=== PATIENT | male | born 1980 | race African-American/Black ===

== ENCOUNTER 2017-12-26 17:04 | Inpatient (IN) | payer SELFPAY ==
[2017-12-26] MEDS ORDERED: Acetaminophen TAB* 325 MG PO PRN (17:52)
[2017-12-26] MEDS ORDERED: Al Hydrox/Mg Hydrox/Simet LIQ* 30 ML UDC PO PRN (17:52)
[2017-12-26] MEDS ORDERED: OLANzapine TAB* 10 MG PO SCH (21:00)
[2017-12-27] MEDS: Vitamin THERAPEUTIC TAB PO SCH (09:40)
[2017-12-27] MEDS ORDERED: clonazePAM TAB(*) 1 MG PO PRN (12:08)
[2017-12-27] MEDS ORDERED: OLANzapine TAB*ODT* 5 MG ONE (12:12)
[2017-12-27] MEDS ORDERED: clonazePAM TAB(*) 1 MG ONE (12:12)
[2017-12-27] MEDS: OLANzapine TAB*ODT* 5 MG PO SCH ×2 (12:20→22:00)
--- NOTE | 2017-12-27 15:15 | HP ---
DATE OF ADMISSION: 12/26/2017. SUPERVISING PSYCHIATRIST: Dr. Camron Newsome* (dictated by ANN Kulkarni) . JUSTIFICATION FOR ADMISSION: The patient phoned police with reports of urges to harm himself and others and was brought to the emergency department for evaluation. The patient merits hospitalization for immediate safety and stabilization. CHIEF COMPLAINT: "My brain is doing bag things to me." HISTORY OF PRESENT ILLNESS: Arsen is a 37-year-old, black male, originally from [facility]. He is known to us from a previous admission in November of 2015. He has a diagnoses of schizophrenia and PTSD per history. The patient presented to the emergency department on either December 23 or December 24. While in the emergency department, there was concern about cardiac debility and he was admitted to the telemetry floor. While on the telemetry floor, he refused a cardiac stress test and was mostly catatonic while there. Psychiatry was consulted and seen by this scientific writer yesterday. He was sitting up in bed with his eyes closed. He was guarded and politely refused to answer questions. He was deemed appropriate for involuntary admission to the [facility] and tolerated the transfer well. He declined ordered dose of Zyprexa last evening. Today, I find the patient sitting on the edge of his bed speaking with a nurse. The patient is tearful and malodorous. He has a rigid presentation and with his eyes closed. With some therapeutic presence and psychoeducation, the patient is able to identify internal stimuli. He is vague and states that his brain is "doing bad things to him." He winces as if in pain when trying to move his arms. He denies physical pain. He was agreeable to onset of psychiatric medications to treat schizophrenia. During conversation with scientific writer , the patient accepts Zyprexa 5 mg ODT and Clonazepam 1 mg. We will continue these medications twice daily and titrate as necessary. The patient reports he has been living on his own and wants to return to "being functional." The patient appears to be unable to care for himself as evidenced by poor ADL's. He has politely refused vital signs, food, and assistance with ADL's. He declined offer to join milieu and prefers to lie in bed. PSYCHIATRIC REVIEW OF SYMPTOMS: The patient presents as dysphoric and tearful. He is clearly bothered by internal stimuli. The patient declines to give specific symptomology. He denies violent ideation, denies suicidal ideation. He does have a known history of schizophrenia and was referred to the ACT team after his admission in 2015. PAST PSYCHIATRIC HISTORY: The patient was admitted to [facility] in June of 2016 during a catatonic state. At that time, he had come to visit his brother in [place] and was living in [facility]. He was on this unit for over a month and improved with intensive psychiatric services, including treatment over objection. According to prior records, the patient had been treated at [facility] and [facility]. This scientific writer spoke with local ACT team and he has not been a client of theirs. PAST MEDICAL HISTORY: As stated above, he was observed on the telemetry floor due to an abnormal EKG. He received a transthoracic echocardiogram, but refused to participate in a stress test. He also had a chest x-ray that noted small right basilar infiltrate, no other abnormal findings. Due to selective mutism, his medical history is unclear. We will continue to assess as the patient is more psychiatrically stable. ALLERGIES: PROLIXIN AND HAS HAD A DYSTONIC REACTION TO INVEGA SUSTENNA. FAMILY PSYCHIATRIC HISTORY: According to previous records, his mother and sister have unspecified mental illness. SUBSTANCE USE HISTORY: The patient denies current substance use. His urine drug screen was negative, as was his toxicology for salicylates, acetaminophen, and alcohol. SOCIAL HISTORY: The patient lives alone in the [facility]. He previously lived in [facility] and was unemployed. He receives Social Security Disability. The patient is an immigrant from [place] and was adopted as a teen. It is unknown how long he has been living in the [place]. MENTAL STATUS EXAM: The patient is sitting on the edge of the bed with tense posture, forearms and hands clenched. He is cooperative with interview and answers questions to the best of his ability. Arsen is a 37-year-old, black male who appears stated age. He has a muscular build, is wearing blue scrubs. He is poorly groomed with poor ADL's and severe halitosis. He is alert and oriented with poor eye contact. He tries to make eye contact multiple times throughout the interview. His mood is dysphoric. His affect is tearful. Thought content was likely significant for delusions and hallucinations as the patient alludes to these. Thought process is impoverished and noted to have thought blocking. His insight is fair. Judgment is poor, but improved since yesterday. REVIEW OF SYSTEMS: The patient denies headache or double vision. He denies sore throat, cough, chest pain, difficulty breathing, abdominal pain, nausea, vomiting, diarrhea, or constipation. He denies enlarged lymph nodes, rashes, fever, or mentation. PHYSICAL EXAMINATION The patient was recently transferred from the Medical floor and received physical from the Hospitalists service. The patient declines offer of physical exam by this scientific writer. LABORATORY DATA: His CBC was grossly unremarkable. His most recent CMP on December 25 was within normal limits. His TSH is normal at 1.6. Urinalysis noted to have 1+ ketones and blood. He received IV fluids over the course of his medical admission. His urine drug screen was negative. DIAGNOSES: Schizophrenia, PTSD. ASSESSMENT: Arsen is a 37-year-old, [place] born, black male with a history of schizophrenia. He was treated on our unit for a over month in 2015 after presenting in a catatonic state. From here, he was discharged to follow-up with ACT team. There have not been any other hospital visits between then and most recent presentation. Arsen is slowly gaining insight into his illness and accepts the offer of medications today. PLAN: Admit to the Adult Behavioral Services Unit on 9.39 status. Code status is full. He continues on 15 minute checks for safety. We will initiate antipsychotic and Benztropine treatment for schizophrenia and history of catatonia. We will encourage ADL's and interaction in therapeutic milieu and the patient is willing to do so. Estimated length of stay is one to two weeks. Discharge planning will include family involvement and outpatient referrals. ANN KULKARNI [id number]/[facility] #: [id number] [place]
[2017-12-27] MEDS: clonazePAM TAB(*) 1 MG PO SCH (22:00)
[2017-12-28] MEDS: clonazePAM TAB(*) 1 MG PO SCH ×2 (09:18→22:31)
[2017-12-28] MEDS: OLANzapine TAB*ODT* 5 MG PO SCH ×2 (09:18→22:31)
[2017-12-28] MEDS: Vitamin THERAPEUTIC TAB PO SCH (09:25)
--- NOTE | 2017-12-28 16:00 | PN ---
Subjective - Subjective Date of Service: 12/28/17 Service Type: 58274 Hosp care 25 min moderate complexity Subjective: Patient is seclusive to his room but verbal upon approach. He states his " brain is still doing bad things" and also reports mild improvement in AH/ delusions. He states "it is unfortunate that I cannot function [without medications]." He asks what is expected of him and copywriter encourages continued medication adherence and rest, along with increased fluid and food intake. Objective - Appearance Appearance: Healthy Appearing Dysmorphic Features: Yes Hygiene: Mal-odorous Grooming: Disheveled - Behavior Psychomotor Activities: Abnormal-Decreased - psychomotor retardation Exhibits Abnormal Movement: Yes - Attitude and Relatedness Attitude and Relatedness: Psychotically Related Eye Contact: Poor - Speech Quality: Unpressured Latencies: Long Quantity: Terse - Mood Patient's Decription of Mood: does not answer - Affect Observed Affect: Depressed Affect Consistent with: Dysphoria - Thought Process Patient's Thought Process: Impoverished Thought Content: No Passive Wish, No Suicidal Planning, No Homicidal Ideation, No Paranoid Ideation - Sensorium Experiencing Hallucinations: Yes Type of Hallucinations: Visual: Yes, Auditory: Yes, Command: Yes - Level of Consciousness Level of Consciousness: Alert Orientation: Yes Intact, Yes Orientated to Time, Yes Orientated to Place, Yes Orientated to Person - Impulse Control Impulse Control: Intact - in structured setting - Insight and Judgement Insight and Judgement: Fair - Group Participation Particating in Group Activities: No - Medication Management Medication Management Adherence: Partial Assessment - Assessment Merits Inpatient Hospitalization: For Immediate Safety, For Stabilization, To Initiate Treatment, For Ongoing Evaluation, For Discharge Planning, Pending Safe DC Plan Inpatient DSM-V Dx: F20.2 Clinical Impression: 37yo [place]-born black male with history of schizophrenia and poor adherence to outpatient mental health treatment. He presented to ED after phoning police with reports of concern he will harm someone. While in ED, patient was noted to have abnormal ECG and was monitored on telemetry. Once medically clear, patient was admitted to B[facility] on involuntary status due to significant positive and negative symptoms of schizophrenia. He merits hospitalization for immediate safety and stabilization. Plan - Plan Treatment Plan: Name: EDIN TRAN Birthdate: 1980 [id number] continued acute intensive psychiatric treatment. Titrate olanzapine then cross titrate to medication with available BEARD. continue clonazepam for catatonic symptoms. Encourage fluid and nutrition intake and ADLs. Discharge planning to include family members and outpatient referrals. Will consider referral to [facility] if no improvement. Continued Medication Management: Start Medication Medications: Current Medications Acetaminophen (Tylenol Tab*) 650 mg PO Q4H PRN PRN Reason: PAIN or TEMP > 101 F Al Hydrox/Mg Hydrox/Simethicone (Maalox Plus*) 30 ml PO Q4H PRN PRN Reason: INDIGESTION Clonazepam (Klonopin Tab(*)) 1 mg PO BID [facility] Last Admin: 12/28/17 09:18 Dose: 1 mg Multivitamins (Theragran Tab*) 1 tab PO DAILY [facility] Last Admin: 12/28/17 09:25 Dose: Not Given Olanzapine (Zyprexa * Tab Odt) 5 mg PO TID [facility] - Discharge Plan Discharge Plan: Outpatient Follow Up Outpatient Program: [facility]
[2017-12-29] MEDS: Vitamin THERAPEUTIC TAB PO SCH (08:07)
[2017-12-29] MEDS: OLANzapine TAB*ODT* 5 MG PO SCH ×3 (08:08→14:51)
[2017-12-29] MEDS: clonazePAM TAB(*) 1 MG PO SCH ×2 (08:08→21:13)
--- NOTE | 2017-12-29 14:44 | PN ---
Subjective - Subjective Date of Service: 12/29/17 Service Type: 05617 Hosp care 15 min low complexity Subjective: Patient has been attending meals, otherwise seclusive to room. He is lying on bed with blanket covering him entirely. He is verbal upon approach and recognizes screenplay writer by name. Patient reports "I took a shower" and endorses mild improvement in AH. He denies concerns or complaints. Objective - Appearance Appearance: Healthy Appearing Dysmorphic Features: Yes Hygiene: Normal Grooming: Fairly Well Kept - Behavior Psychomotor Activities: Abnormal-Decreased - psychomotor retardation Exhibits Abnormal Movement: Yes - Attitude and Relatedness Attitude and Relatedness: Psychotically Related Eye Contact: Poor - Speech Quality: Unpressured Latencies: Long Quantity: Terse - Mood Patient's Decription of Mood: "Okay" - Affect Observed Affect: Depressed Affect Consistent with: Dysphoria - Thought Process Patient's Thought Process: Impoverished Thought Content: Yes Paranoid Ideation, No Passive Wish, No Suicidal Planning, No Homicidal Ideation - Sensorium Experiencing Hallucinations: Yes Type of Hallucinations: Visual: Yes, Auditory: Yes, Command: Yes - Level of Consciousness Level of Consciousness: Alert Orientation: Yes Intact, Yes Orientated to Time, Yes Orientated to Place, Yes Orientated to Person - Impulse Control Impulse Control: Tenuous - Insight and Judgement Insight and Judgement: Fair - Group Participation Particating in Group Activities: No - Medication Management Medication Management Adherence: Yes Assessment - Assessment Merits Inpatient Hospitalization: For Immediate Safety, For Stabilization, To Initiate Treatment, Consolidate Improvements Inpatient DSM-V Dx: F20.2 Clinical Impression: 37yo [place]-born black male with history of schizophrenia and poor adherence to outpatient mental health treatment. He presented to ED after phoning police with reports of concern he will harm someone. While in ED, patient was noted to have abnormal ECG and was monitored on telemetry. Once medically clear, patient was admitted to [facility] on involuntary status due to significant positive and negative symptoms of schizophrenia. He merits hospitalization for immediate safety and stabilization. Plan - Plan Treatment Plan: Name: EDIN TRAN Birthdate: 1980 [id number] continued acute intensive psychiatric treatment. cross titrate olanzapine to aripiprazole, then consider BEARD. continue clonazepam for catatonic symptoms. Encourage fluid and nutrition intake and ADLs. Discharge planning to include family members and outpatient referrals. Will consider referral to [facility] if no improvement. Continued Medication Management: Different Medication Medications: Current Medications Acetaminophen (Tylenol Tab*) 650 mg PO Q4H PRN PRN Reason: PAIN or TEMP > 101 F Al Hydrox/Mg Hydrox/Simethicone (Maalox Plus*) 30 ml PO Q4H PRN PRN Reason: INDIGESTION Clonazepam (Klonopin Tab(*)) 1 mg PO BID [facility] Last Admin: 12/29/17 08:08 Dose: 1 mg Multivitamins (Theragran Tab*) 1 tab PO DAILY [facility] Last Admin: 12/29/17 08:07 Dose: 1 tab Olanzapine (Zyprexa * Tab Odt) 5 mg PO TID [facility] Last Admin: 12/29/17 13:40 Dose: 5 mg - Discharge Plan Discharge Plan: Outpatient Follow [facility]patient [facility]
[2017-12-29] MEDS ORDERED: ARIPiprazole TAB* 5 MG PO SCH (21:00)
[2017-12-30] MEDS: clonazePAM TAB(*) 1 MG PO SCH ×2 (09:44→20:37)
[2017-12-30] MEDS: Vitamin THERAPEUTIC TAB PO SCH (09:44)
[2017-12-30] MEDS: OLANzapine TAB*ODT* 5 MG PO SCH ×2 (09:44→13:50)
--- NOTE | 2017-12-30 15:33 | PN ---
Subjective - Subjective Service Type: 43178 Hosp care 15 min low complexity Subjective: Patient found sitting at a table in corner of milieu, looking out the window. He states "i am taking the medicine" and endorses improved symptoms. He reports his mood is "A lot of things" and becomes tearful. When i ask specifics about AH or delusional thoughts, he states "I wish not to answer that. " Patient informed of positive sickle screen and states previous knowledge but was told he is negative for sickle cell anemia. Psychomotor activity is improved as evidenced by ambulation and ROM of upper extremities. Patient declines offer of staff pass at this time. Objective - Appearance Appearance: Healthy Appearing Dysmorphic Features: Yes Hygiene: Normal Grooming: Fairly Well Kept - Behavior Psychomotor Activities: Normal Exhibits Abnormal Movement: No - Attitude and Relatedness Attitude and Relatedness: Withdrawn Eye Contact: Good - Speech Quality: Unpressured Latencies: Long Quantity: Appropriate - Mood Patient's Decription of Mood: "a lot of things" - Affect Observed Affect: Depressed Affect Consistent with: Dysphoria - Thought Process Patient's Thought Process: Goal Directed, Impoverished Thought Content: Yes Paranoid Ideation, No Passive Wish, No Suicidal Planning, No Homicidal Ideation - Sensorium Experiencing Hallucinations: Yes Type of Hallucinations: Visual: No, Auditory: Yes, Command: No - Level of Consciousness Level of Consciousness: Alert Orientation: Yes Intact, Yes Orientated to Time, Yes Orientated to Place, Yes Orientated to Person - Impulse Control Impulse Control: Intact - Insight and Judgement Insight and Judgement: Fair - Group Participation Particating in Group Activities: No - Medication Management Medication Management Adherence: Yes Assessment - Assessment Merits Inpatient Hospitalization: For Immediate Safety, For Stabilization, Consolidate Improvements, Pending Safe DC Plan Inpatient DSM-V Dx: F20.2 Clinical Impression: 37yo Citizen [place]-born black male with history of schizophrenia and poor adherence to outpatient mental health treatment. He presented to ED after phoning police with reports of concern he will harm someone. While in ED, patient was noted to have abnormal ECG and was monitored on telemetry. Once medically clear, patient was admitted to [facility] on involuntary status due to significant positive and negative symptoms of schizophrenia. He merits hospitalization for immediate safety and stabilization. Plan - Plan Treatment Plan: Name: EDIN TRAN Birthdate: 1980 [id number] continued acute intensive psychiatric treatment. cross titrate olanzapine to aripiprazole, then consider BEARD. continue clonazepam for catatonic symptoms. Encourage fluid and nutrition intake and ADLs. Discharge planning to include family members and outpatient referrals. Will consider referral to [facility] if no improvement. Continued Medication Management: Start Medication Medications: Current Medications Acetaminophen (Tylenol Tab*) 650 mg PO Q4H PRN PRN Reason: PAIN or TEMP > 101 F Al Hydrox/Mg Hydrox/Simethicone (Maalox Plus*) 30 ml PO Q4H PRN PRN Reason: INDIGESTION Aripiprazole (Abilify Tab*) 10 mg PO BEDTIME [facility] Clonazepam (Klonopin Tab(*)) 1 mg PO BID [facility] Last Admin: 12/30/17 09:44 Dose: 1 mg Multivitamins (Theragran Tab*) 1 tab PO DAILY [facility] Last Admin: 12/30/17 09:44 Dose: 1 tab Olanzapine (Zyprexa * Tab Odt) 5 mg PO DAILY [facility] - Discharge Plan Discharge Plan: Outpatient Follow Up Outpatient Program: [facility]
[2017-12-30] MEDS: ARIPiprazole TAB* 5 MG PO SCH (20:37)
[2017-12-31] MEDS: clonazePAM TAB(*) 1 MG PO SCH ×2 (08:27→20:23)
[2017-12-31] MEDS: Vitamin THERAPEUTIC TAB PO SCH (08:28)
[2017-12-31] MEDS: OLANzapine TAB*ODT* 5 MG PO SCH (08:28)
[2017-12-31] MEDS: ARIPiprazole TAB* 5 MG PO SCH (20:23)
[2018-01-01] MEDS: clonazePAM TAB(*) 1 MG PO SCH ×2 (07:55→20:16)
[2018-01-01] MEDS: OLANzapine TAB*ODT* 5 MG PO SCH (07:56)
[2018-01-01] MEDS: Vitamin THERAPEUTIC TAB PO SCH (07:56)
--- NOTE | 2018-01-01 19:57 | PN ---
Subjective - Subjective Date of Service: 01/01/18 Service Type: 03117 Hosp care 15 min low complexity Subjective: Patient was found sitting or standing on the same spot but when approached answered questions appropriately. Reports that his meds are helping and voices are calmer. Voices just tell him how he was doing. Wanted to call his mother to let her know that he was here. Denies SI or HI. Ate fine and sleeping well he says. Objective - Appearance Appearance: Healthy Appearing Dysmorphic Features: No Hygiene: Mal-odorous Grooming: Disheveled - Behavior Psychomotor Activities: Abnormal-Decreased Exhibits Abnormal Movement: No - Attitude and Relatedness Attitude and Relatedness: Appropriate Eye Contact: Fair - Speech Quality: Unpressured Latencies: Long Quantity: Terse - Mood Patient's Decription of Mood: "Fine" - Affect Observed Affect: Constricted - Thought Process Patient's Thought Process: Coherent, Goal Directed Thought Content: No Passive Wish, No Suicidal Planning, No Homicidal Ideation, No Paranoid Ideation - Sensorium Experiencing Hallucinations: Yes Type of Hallucinations: Visual: No, Auditory: Yes, Command: No - Level of Consciousness Level of Consciousness: Alert Orientation: Yes Intact, Yes Orientated to Time, Yes Orientated to Place, Yes Orientated to Person - Impulse Control Impulse Control: Intact - Insight and Judgement Insight and Judgement: Fair - Group Participation Particating in Group Activities: No - Medication Management Medication Management Adherence: Yes Assessment - Assessment Merits Inpatient Hospitalization: For Immediate Safety, For Stabilization, Pending Safe DC Plan Inpatient DSM-V Dx: F20.2 Plan - Plan Treatment Plan: Name: EDIN TRAN Birthdate: 1980 [id number] Continued Medication Management: Continue Outpt Medication Medications: Current Medications Acetaminophen (Tylenol Tab*) 650 mg PO Q4H PRN PRN Reason: PAIN or TEMP > 101 F Al Hydrox/Mg Hydrox/Simethicone (Maalox Plus*) 30 ml PO Q4H PRN PRN Reason: INDIGESTION Aripiprazole (Abilify Tab*) 10 mg PO BEDTIME [facility] Last Admin: 12/31/17 20:23 Dose: 10 mg Clonazepam (Klonopin Tab(*)) 1 mg PO BID [facility] Last Admin: 01/01/18 07:55 Dose: 1 mg Multivitamins (Theragran Tab*) 1 tab PO DAILY [facility] Last Admin: 01/01/18 07:56 Dose: 1 tab Olanzapine (Zyprexa * Tab Odt) 5 mg PO DAILY [facility] Last Admin: 01/01/18 07:56 Dose: 5 mg - Discharge Plan Discharge Plan: Outpatient Follow Up Outpatient Program: [facility]
[2018-01-01] MEDS: ARIPiprazole TAB* 5 MG PO SCH (20:16)
[2018-01-02] MEDS: Vitamin THERAPEUTIC TAB PO SCH (07:36)
[2018-01-02] MEDS: OLANzapine TAB*ODT* 5 MG PO SCH (07:36)
[2018-01-02] MEDS: clonazePAM TAB(*) 1 MG PO SCH ×2 (07:36→19:58)
--- NOTE | 2018-01-02 15:47 | PN ---
Subjective - Subjective Service Type: 55410 Hosp care 15 min low complexity Subjective: Patient is present in milieu. He recognizes investigative writer and endorses improvement in thinking. He states "the meds are working." He continues to exhibit paranoid ideation. For example, he is hesitant to engage in medicaid application with staff. He declines offer of BEARD and states that he will remember to take oral medication. Objective - Appearance Appearance: Well Developed/Nourished Dysmorphic Features: Yes Hygiene: Normal Grooming: Fairly Well Kept - Behavior Psychomotor Activities: Normal Exhibits Abnormal Movement: No - Attitude and Relatedness Attitude and Relatedness: Psychotically Related Eye Contact: Good - Speech Quality: Unpressured Latencies: Long Quantity: Terse - Mood Patient's Decription of Mood: "Good" - Affect Observed Affect: Depressed Affect Consistent with: Dysphoria - Thought Process Patient's Thought Process: Impoverished Thought Content: Yes Paranoid Ideation, No Passive Wish, No Suicidal Planning, No Homicidal Ideation - Sensorium Experiencing Hallucinations: Yes Type of Hallucinations: Visual: No, Auditory: Yes, Command: No - Level of Consciousness Level of Consciousness: Alert Orientation: Yes Intact, Yes Orientated to Time, Yes Orientated to Place, Yes Orientated to Person - Impulse Control Impulse Control: Tenuous - Insight and Judgement Insight and Judgement: Poor - Group Participation Particating in Group Activities: Yes - Medication Management Medication Management Adherence: Yes Assessment - Assessment Merits Inpatient Hospitalization: For Immediate Safety, For Stabilization, Consolidate Improvements Inpatient DSM-V Dx: F20.2 Clinical Impression: 37yo [place]-born black male with history of schizophrenia and poor adherence to outpatient mental health treatment. He presented to ED after phoning police with reports of concern he will harm someone. While in ED, patient was noted to have abnormal ECG and was monitored on telemetry. Once medically clear, patient was admitted to [facility] on involuntary status due to significant positive and negative symptoms of schizophrenia. He merits hospitalization for immediate safety and stabilization. Plan - Plan Treatment Plan: Name: EDIN TRAN Birthdate: 1980 [id number] continued acute intensive psychiatric treatment. cross titrate olanzapine to aripiprazole, then consider BEARD. continue clonazepam for catatonic symptoms. Encourage group attendance. Discharge planning to include family members and outpatient referrals. Will consider [facility] to [facility] if no improvement. Continued Medication Management: Start Medication Medications: Current Medications Acetaminophen (Tylenol Tab*) 650 mg PO Q4H PRN PRN Reason: PAIN or TEMP > 101 F Al Hydrox/Mg Hydrox/Simethicone (Maalox Plus*) 30 ml PO Q4H PRN PRN Reason: INDIGESTION Aripiprazole (Abilify Tab*) 15 mg PO BEDTIME [facility] Clonazepam (Klonopin Tab(*)) 1 mg PO BID [facility] Last Admin: 01/02/18 07:36 Dose: 1 mg Multivitamins (Theragran Tab*) 1 tab PO DAILY [facility] Last Admin: 01/02/18 07:36 Dose: 1 tab Olanzapine (Zyprexa * Tab Odt) 5 mg PO DAILY [facility] Last Admin: 01/02/18 07:36 Dose: 5 mg - Discharge Plan Discharge Plan: [facility]
[2018-01-02] MEDS: ARIPiprazole TAB* 15 MG PO SCH (19:58)
[2018-01-03] MEDS: Vitamin THERAPEUTIC TAB PO SCH (07:31)
[2018-01-03] MEDS: clonazePAM TAB(*) 1 MG PO SCH ×2 (07:31→20:02)
[2018-01-03] MEDS: OLANzapine TAB*ODT* 5 MG PO SCH (07:31)
[2018-01-03] MEDS: ARIPiprazole TAB* 15 MG PO SCH (20:02)
[2018-01-04] MEDS: OLANzapine TAB*ODT* 5 MG PO SCH (08:42)
[2018-01-04] MEDS: clonazePAM TAB(*) 1 MG PO SCH ×2 (08:42→20:22)
[2018-01-04] MEDS: Vitamin THERAPEUTIC TAB PO SCH (08:42)
--- NOTE | 2018-01-04 11:15 | PN ---
[facility]: Group Therapy Note - Service Type Service Type: 40233 Group Psychotherapy - Cognitive Behavioral Group Therapy ( CBT):Patient attended CBT programming this morning and presented with flat affect that did not vary with discussion. Although responsive to direct prompts to respond to questions, patient did not engage in spontaneous conversation.
--- NOTE | 2018-01-04 16:11 | PN ---
Subjective - Subjective Date of Service: 01/04/18 Service Type: 56181 Hosp care 15 min low complexity Subjective: Edin is not talkative and has some slight latencies in his speech. He perceives that he has gotten better and is now able to talk and get out of his room. he feels like medications are working well. There was a moment of slight echolalia that he employed to ask a question. Objective - Appearance Appearance: Well Developed/Nourished Dysmorphic Features: No Hygiene: Normal Grooming: Disheveled - Behavior Psychomotor Activities: Abnormal-Decreased Exhibits Abnormal Movement: No - Attitude and Relatedness Attitude and Relatedness: Cooperative Eye Contact: Good - Speech Quality: Unpressured Latencies: Short Quantity: Terse - Mood Patient's Decription of Mood: "Fine" - Affect Observed Affect: Unvariable Affect Consistent with: Dysphoria - Thought Process Patient's Thought Process: Coherent, Impoverished Thought Content: No Passive Wish, No Suicidal Planning, No Homicidal Ideation - Sensorium Experiencing Hallucinations: No, Sensorium is Clear - Level of Consciousness Level of Consciousness: Lethargic Orientation: Yes Intact, Yes Orientated to Time, Yes Orientated to Place, Yes Orientated to Person - Impulse Control Impulse Control: Impaired - Insight and Judgement Insight and Judgement: Impaired - Group Participation Particating in Group Activities: Yes - Medication Management Medication Management Adherence: Yes - Additional Observations Comments: Speech is slow. Eye contact is intense. His thoughts appear to be difficult to process, but he is pleasant and on topic. Assessment - Assessment Inpatient DSM-V Dx: F20.2 Clinical Impression: Edin is a 37-y.o. black man with a history of schizophrenia who is currently experiencing an exacerbation of this disorder. He is currently displaying traits of impoverished thoughts but he feels like he is improving. he feels more talkative although he acknowledges that he is not "chatty." He is proud of his advances toward getting well. he continues to keep to himself, but he is seen in the milieu and going to groups. Plan - Plan Treatment Plan: Name: EDIN TRAN Birthdate: 1980 [id number] Medications: Current Medications Acetaminophen (Tylenol Tab*) 650 mg PO Q4H PRN PRN Reason: PAIN or TEMP > 101 F Al Hydrox/Mg Hydrox/Simethicone (Maalox Plus*) 30 ml PO Q4H PRN PRN Reason: INDIGESTION Aripiprazole (Abilify Tab*) 15 mg PO BEDTIME [facility] Last Admin: 01/03/18 20:02 Dose: 15 mg Clonazepam (Klonopin Tab(*)) 1 mg PO BID [facility] Last Admin: 01/04/18 08:42 Dose: 1 mg Multivitamins (Theragran Tab*) 1 tab PO DAILY [facility] Last Admin: 01/04/18 08:42 Dose: 1 tab Olanzapine (Zyprexa * Tab Odt) 5 mg PO DAILY [facility] Last Admin: 01/04/18 08:42 Dose: 5 mg - Discharge Plan Discharge Plan: Outpatient Follow Up Additional Comments: Treatment will continue for Edin. He is improving slowly. His care will be returned to Aleida Pham NP in psychiatry.
[2018-01-04] MEDS: ARIPiprazole TAB* 15 MG PO SCH (20:23)
[2018-01-05] MEDS: OLANzapine TAB*ODT* 5 MG PO SCH (08:32)
[2018-01-05] MEDS: Vitamin THERAPEUTIC TAB PO SCH (08:32)
[2018-01-05] MEDS: clonazePAM TAB(*) 1 MG PO SCH ×2 (08:32→20:20)
--- NOTE | 2018-01-05 13:13 | PN ---
MHU: Group Therapy Note - Service Type Service Type: [id number] Group Psychotherapy - Cognitive Behavioral Group Therapy ( CBT):Patient attended CBT programming this morning and presented with flat affect that did not vary with discussion. Although responsive to direct prompts to respond to questions, patient did not engage in spontaneous conversation.
[2018-01-05] MEDS: ARIPiprazole TAB* 15 MG PO SCH (20:20)
--- NOTE | 2018-01-06 08:04 | PN ---
Subjective - Subjective Service Type: [id number] Hosp care 15 min low complexity Subjective: Patient is euthymic with flat affect. He reports improved mood and denies AH. He endorses decreased paranoia and has allowed communication with family members. He is also agreeable to meeting with a medicaid navigator to procure health insurance. He continues to assert the "medications are helping" and that he is able to interact moreso with others. He has been attending groups and present in milieu. Objective - Appearance Appearance: Well Developed/Nourished Dysmorphic Features: No Hygiene: Normal Grooming: Fairly Well Kept - Behavior Psychomotor Activities: Abnormal-Decreased - mild psychomotor retardation, improved - Attitude and Relatedness Attitude and Relatedness: Cooperative Eye Contact: Good - Speech Quality: Unpressured Latencies: Short Quantity: Appropriate - Mood Patient's Decription of Mood: "super" - Affect Observed Affect: Unvariable Affect Consistent with: Euthymia - Thought Process Patient's Thought Process: Coherent, Impoverished Thought Content: No Passive Wish, No Suicidal Planning, No Homicidal Ideation, No Paranoid Ideation - Sensorium Experiencing Hallucinations: No, Sensorium is Clear Type of Hallucinations: Visual: No, Auditory: No, Command: No - Level of Consciousness Level of Consciousness: Alert Orientation: Yes Intact, Yes Orientated to Time, Yes Orientated to Place, Yes Orientated to Person - Impulse Control Impulse Control: Tenuous - Insight and Judgement Insight and Judgement: Fair - Group Participation Particating in Group Activities: Yes - Medication Management Medication Management Adherence: Yes Assessment - Assessment Merits Inpatient Hospitalization: For Immediate Safety, For Stabilization, Consolidate Improvements, Pending Safe DC Plan Inpatient DSM-V Dx: F20.2 Clinical Impression: 37yo [place]-born black male with history of schizophrenia and poor adherence to outpatient mental health treatment. He presented to ED after phoning police with reports of concern he will harm someone. While in ED, patient was noted to have abnormal ECG and was monitored on telemetry. Once medically clear, patient was admitted to [facility] on involuntary status due to significant positive and negative symptoms of schizophrenia. He merits hospitalization for immediate safety and stabilization. Plan - Plan Treatment Plan: Name: EDIN TRAN Birthdate: 1980 [id number] continued acute intensive psychiatric treatment. continue cross-titration of olanzapine and aripiprazole, then consider BEARD. patient declines BEARD at this time. continue clonazepam for catatonic symptoms. Encourage group attendance and participation. Discharge planning to include family members and outpatient referrals. Continued Medication Management: Different Medication Medications: Current Medications Acetaminophen (Tylenol Tab*) 650 mg PO Q4H PRN PRN Reason: PAIN or TEMP > 101 F Al Hydrox/Mg Hydrox/Simethicone (Maalox Plus*) 30 ml PO Q4H PRN PRN Reason: INDIGESTION Aripiprazole (Abilify Tab*) 20 mg PO BEDTIME [facility] Last Admin: 01/05/18 20:20 Dose: 20 mg Clonazepam (Klonopin Tab(*)) 1 mg PO BID [facility] Last Admin: 01/05/18 20:20 Dose: 1 mg Multivitamins (Theragran Tab*) 1 tab PO DAILY [facility] Last Admin: 01/05/18 08:32 Dose: 1 tab Olanzapine (Zyprexa * Tab Odt) 2.5 mg PO DAILY [facility] Last Admin: 01/05/18 08:32 Dose: 5 mg - Discharge Plan Discharge Plan: Outpatient Follow Up Outpatient Program: [facility]
[2018-01-06] MEDS: Vitamin THERAPEUTIC TAB PO SCH (08:28)
[2018-01-06] MEDS: clonazePAM TAB(*) 1 MG PO SCH ×2 (08:29→19:53)
[2018-01-06] MEDS: OLANzapine TAB*ODT* 5 MG PO SCH ×2 (08:29→10:03)
[2018-01-06] MEDS: ARIPiprazole TAB* 15 MG PO SCH (19:53)
[2018-01-07] MEDS: clonazePAM TAB(*) 1 MG PO SCH ×2 (09:45→20:24)
[2018-01-07] MEDS: Vitamin THERAPEUTIC TAB PO SCH (09:45)
[2018-01-07] MEDS: OLANzapine TAB*ODT* 5 MG PO SCH (09:47)
[2018-01-07] MEDS: ARIPiprazole TAB* 15 MG PO SCH (20:25)
[2018-01-08] MEDS: Vitamin THERAPEUTIC TAB PO SCH (08:04)
[2018-01-08] MEDS: clonazePAM TAB(*) 1 MG PO SCH ×2 (08:04→20:08)
[2018-01-08] MEDS: OLANzapine TAB*ODT* 5 MG PO SCH (08:04)
[2018-01-08] MEDS: ARIPiprazole TAB* 15 MG PO SCH (20:08)
[2018-01-09] MEDS: Vitamin THERAPEUTIC TAB PO SCH (07:55)
[2018-01-09] MEDS: clonazePAM TAB(*) 1 MG PO SCH (07:55)
[2018-01-09] MEDS: OLANzapine TAB*ODT* 5 MG PO SCH (07:56)
--- NOTE | 2018-01-09 16:26 | PN ---
Subjective - Subjective Date of Service: 01/09/18 Service Type: [id number] Hosp care 25 min moderate complexity Subjective: Patient reports much improved mood. He denies depressed mood or anxiety. He denies AH. He demonstrates good insight in regards to improvement in symptoms over the course of admission. He states "I am pleased with the progress of the medication" and asserts he will continue to take oral aripiprazole. He continues to decline offer of BEARD but states he will keep this option in mind. Pipe Fitter Marine discussed discontinuation of olanzapine and decrease of clonazepam. Objective - Appearance Appearance: Well Developed/Nourished Dysmorphic Features: No Hygiene: Normal Grooming: Well Kept - Behavior Psychomotor Activities: Normal Exhibits Abnormal Movement: No - Attitude and Relatedness Attitude and Relatedness: Cooperative Eye Contact: Good - Speech Quality: Unpressured Latencies: Normal Quantity: Appropriate - Mood Patient's Decription of Mood: "super" - Affect Observed Affect: Good Affect Consistent with: Euthymia - Thought Process Patient's Thought Process: Coherent, Goal Directed Thought Content: No Passive Wish, No Suicidal Planning, No Homicidal Ideation, No Paranoid Ideation - Sensorium Experiencing Hallucinations: No, Sensorium is Clear Type of Hallucinations: Visual: No, Auditory: No, Command: No - Level of Consciousness Level of Consciousness: Alert Orientation: Yes Intact, Yes Orientated to Time, Yes Orientated to Place, Yes Orientated to Person - Impulse Control Impulse Control: Intact - Insight and Judgement Insight and Judgement: Good - Group Participation Particating in Group Activities: Yes - Medication Management Medication Management Adherence: Yes Assessment - Assessment Merits Inpatient Hospitalization: For Immediate Safety, For Stabilization, Consolidate Improvements, For Discharge Planning Inpatient DSM-V Dx: F20.2 Clinical Impression: 37yo [place]-born black male with history of schizophrenia and poor adherence to outpatient mental health treatment. He presented to ED after phoning police with reports of concern he will harm someone. While in ED, patient was noted to have abnormal ECG and was monitored on telemetry. Once medically clear, patient was admitted to [facility] on involuntary status due to significant positive and negative symptoms of schizophrenia. He merits hospitalization for immediate safety and stabilization. Plan - Plan Treatment Plan: Name: EDIN TRAN Birthdate: 1980 [id number] continued acute intensive psychiatric treatment. DC olanzapine and continue aripiprazole. start taper of clonazepam. Discharge planning to include family members and outpatient referrals. Continued Medication Management: Different Medication Medications: Current Medications Acetaminophen (Tylenol Tab*) 650 mg PO Q4H PRN PRN Reason: PAIN or TEMP > 101 F Al Hydrox/Mg Hydrox/Simethicone (Maalox Plus*) 30 ml PO Q4H PRN PRN Reason: INDIGESTION Aripiprazole (Abilify Tab*) 20 mg PO BEDTIME [facility] Last Admin: 01/08/18 20:08 Dose: 20 mg Clonazepam (Klonopin Tab(*)) 0.5 mg PO BID [facility] Multivitamins (Theragran Tab*) 1 tab PO DAILY [facility] Last Admin: 01/09/18 07:55 Dose: 1 tab - Discharge Plan Discharge Plan: Outpatient Follow Up Outpatient Program: [facility]
[2018-01-09] MEDS: ARIPiprazole TAB* 15 MG PO SCH (20:01)
[2018-01-09] MEDS: clonazePAM TAB(*) 0.5 MG PO SCH (20:01)
[2018-01-10] MEDS: clonazePAM TAB(*) 0.5 MG PO SCH ×2 (07:59→20:06)
[2018-01-10] MEDS: Vitamin THERAPEUTIC TAB PO SCH (07:59)
[2018-01-10] MEDS: ARIPiprazole TAB* 15 MG PO SCH (20:06)
[2018-01-11] MEDS: clonazePAM TAB(*) 0.5 MG PO SCH ×2 (07:54→19:58)
[2018-01-11] MEDS: Vitamin THERAPEUTIC TAB PO SCH (07:54)
--- NOTE | 2018-01-11 15:37 | PN ---
Subjective - Subjective Service Type: 82205 Hosp care 15 min low complexity Subjective: Patient is euthymic with full affect. He denies noticeable effects from discontinuation of olanzapine and decrease in clonazepam. He is participating in groups and interacting with peers during free times. Patient reports adequate sleep. Objective - Appearance Appearance: Well Developed/Nourished Dysmorphic Features: No Hygiene: Normal Grooming: Well Kept - Behavior Psychomotor Activities: Normal Exhibits Abnormal Movement: No - Attitude and Relatedness Attitude and Relatedness: Cooperative Eye Contact: Good - Speech Quality: Unpressured Latencies: Normal Quantity: Appropriate - Mood Patient's Decription of Mood: "Great" - Affect Observed Affect: Good Affect Consistent with: Euthymia - Thought Process Patient's Thought Process: Coherent, Goal Directed Thought Content: No Passive Wish, No Suicidal Planning, No Homicidal Ideation, No Paranoid Ideation - Sensorium Experiencing Hallucinations: No, Sensorium is Clear Type of Hallucinations: Visual: No, Auditory: No, Command: No - Level of Consciousness Level of Consciousness: Alert Orientation: Yes Intact, Yes Orientated to Time, Yes Orientated to Place, Yes Orientated to Person - Impulse Control Impulse Control: Intact - Insight and Judgement Insight and Judgement: Good - Group Participation Particating in Group Activities: Yes - Medication Management Medication Management Adherence: Yes Assessment - Assessment Merits Inpatient Hospitalization: For Immediate Safety, For Stabilization, Consolidate Improvements, Pending Safe DC Plan Inpatient DSM-V Dx: F20.2 Clinical Impression: 37yo [place]-born black male with history of schizophrenia and poor adherence to outpatient mental health treatment. He presented to ED after phoning police with reports of concern he will harm someone. While in ED, patient was noted to have abnormal ECG and was monitored on telemetry. Once medically clear, patient was admitted to [facility] on involuntary status due to significant positive and negative symptoms of schizophrenia. He merits hospitalization for immediate safety and stabilization. Plan - Plan Treatment Plan: Name: EDIN TRAN Birthdate: 1980 [id number] continued acute intensive psychiatric treatment. continue aripiprazole and taper of clonazepam. Discharge planning to include family members and outpatient referrals. Continued Medication Management: Different Medication Medications: Current Medications Acetaminophen (Tylenol Tab*) 650 mg PO Q4H PRN PRN Reason: PAIN or TEMP > 101 F Al Hydrox/Mg Hydrox/Simethicone (Maalox Plus*) 30 ml PO Q4H PRN PRN Reason: INDIGESTION Aripiprazole (Abilify Tab*) 20 mg PO BEDTIME [facility] Last Admin: 01/10/18 20:06 Dose: 20 mg Clonazepam (Klonopin Tab(*)) 0.5 mg PO BID [facility] Last Admin: 01/11/18 07:54 Dose: 0.5 mg Multivitamins (Theragran Tab*) 1 tab PO DAILY [facility] Last Admin: 01/11/18 07:54 Dose: 1 tab - Discharge Plan Discharge Plan: Outpatient Follow Up Outpatient Program: [facility]
[2018-01-11] MEDS: ARIPiprazole TAB* 15 MG PO SCH (19:58)
[2018-01-12] MEDS: Vitamin THERAPEUTIC TAB PO SCH (08:03)
--- NOTE | 2018-01-12 16:56 | PN ---
MHU: Group Therapy Note - Service Type Service Type: [id number] Group Psychotherapy - Medication Education Group: Patient attended group and presented with flat affect that did not vary with discussion. Although responsive to direct prompts to respond to questions, patient did not engage in spontaneous conversation. - Additional Group Comments Group Comments: Medication Education Group: Patient attended group and presented with flat affect that did not vary with discussion. Although responsive to direct prompts to respond to questions, patient did not engage in spontaneous conversation.
[2018-01-12] MEDS: clonazePAM TAB(*) 0.5 MG PO SCH (20:37)
[2018-01-12] MEDS: ARIPiprazole TAB* 15 MG PO SCH (20:37)
[2018-01-13 07:42] VITALS: BP 102/59
[2018-01-13] MEDS: Vitamin THERAPEUTIC TAB PO SCH (08:31)
--- NOTE | 2018-01-14 01:38 | DS ---
CC: [facility] * DISCHARGE SUMMARY: DATE OF ADMISSION: 12/26/17 DATE OF DISCHARGE: 01/13/18 SUPERVISING PHYSICIAN: Kamari Camacho MD * (DICTATED BY GABBI GRISSOM NP) DISCHARGE DIAGNOSIS: Schizophrenia. CONDITION AT THE TIME OF DISCHARGE: Grossly improved. The patient reports dysphoric and sad mood over the past 2 days. He is unable to put into words further and unable to identify triggering or precipitating factors. The patient reports readiness for discharge today and is eager to return to his home and usual routines. He has accepted offer of referral to outpatient mental health services. He reports to intent to continue with current medications and declined offer of long-acting injectable form of Abilify. The telegraphic typewriter operator chief spoke with his brother Demond, who lives nearby who is available to take the patient home today. Demond is concerned about continued medication adherence as this has been a factor of the patient's relapses. Building And Grounds Supervisor discussed suggestions for promoting medication adherence including discussing concerns with the patient's outpatient mental health team if Arsen starts to decompensate. MENTAL STATUS EXAM: Arsen is a 37-year-old black male who is well-groomed and dressed in appropriate clothing. He is lying on bed upon approach but easy to arouse and participates fully in conversation. He is alert and oriented x3. His eye contact is good. His speech is soft and articulate. Memory is 3/3. Thought content, he denies suicidal ideation or urges for self harm. He denies HI or and has continued to do so throughout psychiatric admission. Thought process is significant for mild thought blocking, which is improved greatly since admission to the BSU. Insight is good. Judgement is good and his fund of knowledge is excellent. His intelligence is estimated to be high average as demonstrated by his vocabulary. INSTRUCTIONS GIVEN TO THE PATIENT: A. Medications: 1. He will remain on aripiprazole 20 mg p.o. daily. 2. He has also been taking clonazepam scheduled here on the unit and I provided a 30 day supply of clonazepam 0.5 mg p.o. bedtime p.r.n. anxiety and insomnia. These were electronically prescribed to the outpatient pharmacy here at the hospital. B. Diet is regular. C. Activity: Ambulation as tolerated. Tobacco cessation: Is not applicable. There are no studies pending at the time of discharge. D. Followup Care: The patient will follow up with [facility]. He has an intake on TuesdayJanuary 17 at 10 a.m. with Chhaya Ruggiero. From there he will be referred for psychiatric services. The patient is also given information about the physician referral line and encouraged to set up primary care. E. Substance abuse followup is not applicable. HOSPITAL COURSE: A. Reason for admission. The patient presented to the emergency department on December 23. While in the emergency department, there was concern about cardiac abnormality and he was admitted to the telemetry floor. While on the telemetry floor, he refused a cardiac stress test and was mostly catatonic while there. Psychiatry was consulted and seen by this telegraphic typewriter operator chief. He was sitting up in bed with his eyes closed. He was guarded and politely refused to answer questions. He seemed appropriate for involuntary admission to the BSU and tolerated the transfer well. He was admitted to the Adult BSU on December 26. He presented as tearful and malodorous with rigid presentation and eyes closed. He was initially guarded and later identified internal stimuli. He states that his brain is "doing bad things to him." Part B: Psychiatric treatment rendered: The patient was admitted to Adult Behavioral Services Unit on status. He was placed on 15 minutes check for safety. We started olanzapine 5 mg and clonazepam 1 mg. These medications were titrated to twice daily per clonazepam. His sickle cell screen was positive. The patient reports he has been told in the past about positive screening but further testing negated actual sickle cell anemia. We titrated the olanzapine and added aripiprazole due to the availability as a long-acting injection. The patient tolerated well and eventually aripiprazole was titrated to 20 mg and olanzapine was tapered to discontinue. Clonazepam was eventually tapered to 0.5 mg daily which he can continue to take on an as needed basis. The patient noted to have much improvement in affect and both positive and negative symptoms of schizophrenia. He was able to identify changes in symptoms for himself as well and was appreciative of BSU admission and air liaison and special staff. Due to use of second generation antipsychotic, we monitored his hemoglobin A1c which was normal at 5.1. His lipid panel was also within normal limits. The patient denied any physical distress or untoward effects of medications. Social work collaborated with the patient's family members and obtained much psychiatric and psychosocial history during this admission. Please see social work note for further details. The patient was agreeable to referral for outpatient mental health treatment at [facility]. He will remain living in [facility] [facility] on the land of his adopted brother's property. 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 As stated above, brother was understandably concerned about patient' s continued medication adherence and is knowledgeable of long-acting injection as a possibility if patient is having difficulty with oral medication adherence. On the day of discharge, the patient reported readiness for discharge. He endorsed concern of increase decompensation if admission continued. He denies suicidal ideation, urges to self-harm and he denied HI or , which was the case throughout his admission. He had been decreased to q. 30 minutes observations and allowed staff pass. He was calm and in behavioral control. The patient was noted to be pleasant, kind and interactive with both staff and peers. He was deemed appropriate by treatment team for discharge today. GABBI GRISSOM NP [id number]/CPS #: [id number] [place]
== END 2018-01-13 11:45 | disposition home or self-care (01) | DRG 885 ==
LOC: BSU 17:04
PROVIDERS: ADMIT Psychiatry & Neurology Psychiatry; ATTEND Psychiatry & Neurology Psychiatry
PROC: GZHZZZZ Group Psychotherapy (ICD-10-PCS; principal; 2018-01-04)
DX: F20.2 Catatonic schizophrenia (principal); F43.10 Post-traumatic stress disorder, unspecified; F41.9 Anxiety disorder, unspecified; G47.00 Insomnia, unspecified; Z91.19 Patient's noncompliance with other medical treatment and regimen
CPT/HCPCS: 36415; 80061; 83020; 83036; 85660; 90853; 99222; 99231; 99232; 99238; A9270-GY